=== PATIENT | female | born 1980 | race African-American/Black ===

== ENCOUNTER 2021-08-29 00:43 | Emergency (ER) | payer MEDICAID ==
[~2021-08-29] VITALS: Ht 154.9 cm; Wt 46.7 kg
[2021-08-29 01:16] VITALS: BP 126/74
== END 2021-08-29 01:38 | disposition left against medical advice (07) ==
LOC: ER 00:43
DX: S60.458A Superficial foreign body of other finger, initial encounter (principal); Z53.21 Procedure and treatment not carried out due to patient leaving prior to being seen by health care provider; X58.XXXA Exposure to other specified factors, initial encounter; Y93.89 Activity, other specified; Y92.89 Other specified places as the place of occurrence of the external cause; Y99.8 Other external cause status